=== PATIENT | male | born 1940 | race Two or more races ===

== ENCOUNTER 2025-05-08 19:07 | Inpatient (IN) | payer MEDICARE, OTHER ==
[~2025-05-08] VITALS: Ht 170.2 cm; Wt 57.6 kg
[2025-05-08] MEDS: IV NS 0.9% 500 ML BAG IV ONE (19:44)
[2025-05-08 19:52] LABS: PLATELET COUNT (AUTO) 217 K/uL (150-450); RED BLOOD CELL COUNT(AUTO) 3.74 MIL/uL (4.5-6.0); RED CELL DISTRIBUTION WIDTH 15.0 % (11.5-15.0); WHITE BLOOD COUNT (AUTO) 6.6 K/uL (4.3-11.0)
[2025-05-08 19:59] LABS: CALCIUM, SERUM 8.6 mg/dL (8.5-10.1); CREATININE 1.2 mg/dL (0.6-1.3); SODIUM SERUM 142 mmol/L (136-145); UREA NITROGEN, BLOOD 22 mg/dL (7-18)
[2025-05-08 20:05] LABS: ASPARTATE AMINOTRANSFERASE 20 U/L (15-37); TOTAL PROTEIN, SERUM 6.6 g/dL (6.4-8.2)
[2025-05-08 21:21] LABS: APPEARANCE,URINE SLIGHTLY CLOUDY (CLEAR); BLOOD, URINE NEGATIVE Ery/uL (NEGATIVE); LEUKOCYTE ESTERASE ,URINE 2+ (NEGATIVE); NITRITE, URINE NEGATIVE (NEGATIVE); UGLUCOSE NEGATIVE (NEGATIVE)
[2025-05-08 21:42] LABS: ADD URINE CULTURE YES; SQUAMOUS EPITHELIAL CELL,UR Few /HPF (None Seen)
[2025-05-08] MEDS ORDERED: ACETAMINOPHEN 325 MG TABLET PO PRN (22:00)
[2025-05-08] MEDS ORDERED: MAG HYDROX/AL HYDROX/SIMETH 30 ML UDC PO PRN (22:00)
[2025-05-08] MEDS ORDERED: Z GUARD REMEDY 4 OZ OINT TP PRN (22:00)
[2025-05-08] MEDS ORDERED: ONDANSETRON HCL/PF 4 MG/2 ML VIAL IVP PRN (22:00)
[2025-05-08] MEDS ORDERED: MAGNESIUM HYDROXIDE 30 ML UDC PO PRN (22:00)
[2025-05-08] MEDS ORDERED: BISACODYL SUPP (10 MG) 10 MG/SUPP.RECT SUPP.RECT RC PRN (22:30)
[2025-05-08] MEDS ORDERED: PSEUDOEPHEDRINE HCL 30 MG TABLET PO PRN (22:30)
[2025-05-08] MEDS ORDERED: PHENYLEPHRINE/SHK LV/MO/PET,WH 30 GM TUBE RC PRN (22:30)
[2025-05-08] MEDS ORDERED: LEVOFLOXACIN 250 MG /D5W 50 ML 50 ML IV ONE (23:04)
[2025-05-08] MEDS: IV NS 0.9% 1,000 ML IV PRN (23:14)
[2025-05-08] MEDS: LEVOFLOXACIN 250 MG /D5W 50 ML 250 MG in PREMIX 1 EA IV SCH (23:14)
[2025-05-09] VITALS (7 sets, daily range): BP systolic 105–170; BP diastolic 54–95; TEMP 97.5–98.3; O2SAT 97–99
[2025-05-09 07:29] LABS: PLATELET COUNT (AUTO) 216 K/uL (150-450); RED BLOOD CELL COUNT(AUTO) 3.74 MIL/uL (4.5-6.0); RED CELL DISTRIBUTION WIDTH 14.8 % (11.5-15.0); WHITE BLOOD COUNT (AUTO) 7.4 K/uL (4.3-11.0)
[2025-05-09 07:48] LABS: LDL 50.0 mg/dL (0-99)
[2025-05-09 07:53] LABS: CALCIUM, SERUM 8.4 mg/dL (8.5-10.1); CREATININE 1.1 mg/dL (0.6-1.3); PHOSPHORUS 3.1 mg/dL (2.5-4.9); SODIUM SERUM 140.0 mmol/L (136-145); UREA NITROGEN, BLOOD 18.0 mg/dL (7-18)
[2025-05-09] MEDS: FLUTICASONE PROPIONATE 16 GM BOTTLE NS SCH (09:00)
[2025-05-09] MEDS: ASPIRIN 81 MG TAB.CHEW PO SCH (09:00)
[2025-05-09] MEDS: MULTIVITAMINS,THERAGRAN 1 UDTAB TABLET PO SCH (09:00)
[2025-05-09] MEDS: CARBIDOPA/LEVA CR 25/100MG 1 TAB.SA PO SCH (09:00)
[2025-05-09] MEDS: AMLODIPINE BESYLATE 10 MG TABLET PO SCH (09:00)
[2025-05-09] MEDS ORDERED: ACET325T53 PO (09:54)
[2025-05-09] MEDS ORDERED: ATOR40TA PO (09:54)
[2025-05-09] MEDS ORDERED: POLY17PO4 PO (09:54)
[2025-05-09] MEDS ORDERED: MULT-213 PO (09:54)
[2025-05-09] MEDS ORDERED: CHOL500052 PO (09:54)
[2025-05-09] MEDS ORDERED: CARB1TAB21 PO (09:54)
[2025-05-09] MEDS ORDERED: BISA10SU11 RC (09:54)
[2025-05-09] MEDS ORDERED: ASPI-1169 PO (09:54)
[2025-05-09] MEDS ORDERED: PSEU-298 PO (09:54)
[2025-05-09] MEDS ORDERED: MELA3TAB41 PO (09:54)
[2025-05-09] MEDS ORDERED: PHEN51GE9 TP (09:54)
[2025-05-09] MEDS ORDERED: CALC500T53 PO (09:54)
[2025-05-09] MEDS ORDERED: MAGN400O6 PO (09:54)
[2025-05-09] MEDS ORDERED: AMLO-213 PO (09:54)
[2025-05-09] MEDS ORDERED: FLUT16SP16 BNOSTRILS (09:54)
[2025-05-09] MEDS ORDERED: NA P133E RC (09:54)
[2025-05-09] MEDS: ATORVASTATIN 40 MG TABLET PO SCH (21:33)
[2025-05-10] VITALS: BP 103/68; TEMP 98.2; O2SAT 99
[2025-05-10 04:00] VITALS: BP 155/70; TEMP 98.4; O2SAT 98
[2025-05-10 06:49] LABS: PLATELET COUNT (AUTO) 186 K/uL (150-450); RED BLOOD CELL COUNT(AUTO) 3.34 MIL/uL (4.5-6.0); RED CELL DISTRIBUTION WIDTH 14.6 % (11.5-15.0); WHITE BLOOD COUNT (AUTO) 6.0 K/uL (4.3-11.0)
[2025-05-10 07:10] LABS: CALCIUM, SERUM 8.3 mg/dL (8.5-10.1); CREATININE 1.0 mg/dL (0.6-1.3); SODIUM SERUM 138.0 mmol/L (136-145); UREA NITROGEN, BLOOD 17.0 mg/dL (7-18)
[2025-05-10 07:14] LABS: PHOSPHORUS 3.1 mg/dL (2.5-4.9)
[2025-05-10 08:00] VITALS: BP 157/75; TEMP 97.5; O2SAT 98
[2025-05-10 11:30] VITALS: BP 110/56; TEMP 97; O2SAT 98
[2025-05-10] MEDS ORDERED: ACETAMINOPHEN 325 MG TABLET PO PRN (14:30)
[2025-05-10] MEDS ORDERED: PSEUDOEPHEDRINE HCL 30 MG TABLET PO PRN (14:30)
[2025-05-10] MEDS ORDERED: PHENYLEPHRINE TP PRN (14:30)
[2025-05-10] MEDS ORDERED: BISACODYL SUPP (10 MG) 10 MG/SUPP.RECT SUPP.RECT RC PRN (14:30)
[2025-05-10] MEDS ORDERED: [UNRECOGNIZED DRUG - OTHER] TP PRN (14:30)
[2025-05-10] MEDS ORDERED: POLYETHYLENE GLYCOL 3350 17 GM POWD.PACK PO PRN (14:30)
[2025-05-10] MEDS ORDERED: WITCH HAZEL TP PRN (14:30)
[2025-05-10] MEDS ORDERED: ERGOCALCIFEROL (VITAMIN D 2) 50,000 UNIT CAPSULE PO SCH (14:30)
[2025-05-10] MEDS ORDERED: NA PHOS,M-B/NA PHOS,DI-BA 1 EA ENEMA RC PRN (14:30)
[2025-05-10] MEDS ORDERED: MAGNESIUM HYDROXIDE 30 ML UDC PO PRN (14:30)
[2025-05-10 16:00] VITALS: BP 113/71; TEMP 97.3; O2SAT 99
[2025-05-10] MEDS: CARBIDOPA/LEVODOPA 25/100 MG 1 UDTAB PO SCH (16:47)
[2025-05-10 20:00] VITALS: BP_SYST 150; BP_SYST 155; BP_DIAS 56; BP_DIAS 60; TEMP 97.5; O2SAT 95
[2025-05-10] MEDS: ATORVASTATIN 40 MG TABLET PO SCH (21:05)
[2025-05-11] VITALS: BP 155/70; TEMP 97.9; O2SAT 100
[2025-05-11 04:00] VITALS: BP 144/50; TEMP 97.5; O2SAT 99
[2025-05-11 06:19] LABS: PLATELET COUNT (AUTO) 189 K/uL (150-450); RED BLOOD CELL COUNT(AUTO) 3.60 MIL/uL (4.5-6.0); RED CELL DISTRIBUTION WIDTH 14.4 % (11.5-15.0); WHITE BLOOD COUNT (AUTO) 5.9 K/uL (4.3-11.0)
[2025-05-11 06:28] LABS: CALCIUM, SERUM 8.2 mg/dL (8.5-10.1); CREATININE 1.0 mg/dL (0.6-1.3); SODIUM SERUM 139.0 mmol/L (136-145); UREA NITROGEN, BLOOD 15.0 mg/dL (7-18)
[2025-05-11 06:43] LABS: PHOSPHORUS 3.5 mg/dL (2.5-4.9)
[2025-05-11 08:00] VITALS: BP 163/82; TEMP 98.1; O2SAT 97
[2025-05-11] MEDS ORDERED: Medication Not On Formulary EA (Multivitamins W-Minerals (Multivitamins With Minerals) 1 PO SCH (09:00)
[2025-05-11] MEDS ORDERED: FLUTICASONE PROPIONATE 16 GM BOTTLE NS SCH (09:00)
[2025-05-11] MEDS: AMLODIPINE BESYLATE 10 MG TABLET PO SCH (09:30)
[2025-05-11] MEDS: ASPIRIN 81 MG TAB.CHEW PO SCH (09:31)
[2025-05-11] MEDS: CALCIUM CARBONATE (1250) 500 MG TABLET PO SCH (09:31)
[2025-05-11 11:30] VITALS: BP 108/61; TEMP 98.2; O2SAT 98
[2025-05-11] MEDS ORDERED: LEVO250T59 PO (15:57)
[2025-05-11 16:00] VITALS: BP 159/67; TEMP 98.8; O2SAT 99
[2025-05-11 19:51] VITALS: BP 176/75
[2025-05-11] MEDS: hydrALAZINE HCL IV 20 MG VIAL IV PRN (19:51)
[2025-05-11] MEDS ORDERED: LEVOFLOXACIN (250MG) 250 MG TABLET PO SCH (22:00)
== END 2025-05-11 20:30 | DRG 74 ==
LOC: ER 19:09 → TELE 21:49
PROVIDERS: ADMIT Registered Nurse Psychiatric/Mental Health; ATTEND Student in an Organized Health Care Education/Training Program
DX: G90.89 Other disorders of autonomic nervous system (principal); N39.0 Urinary tract infection, site not specified; I50.32 Chronic diastolic (congestive) heart failure; E86.0 Dehydration; Z66 Do not resuscitate; Z51.5 Encounter for palliative care; G20.A1 Parkinson's disease without dyskinesia, without mention of fluctuations; I25.10 Atherosclerotic heart disease of native coronary artery without angina pectoris; G47.33 Obstructive sleep apnea (adult) (pediatric); Z88.0 Allergy status to penicillin; Z91.0110 Allergy to milk products, unspecified; D64.9 Anemia, unspecified; R73.9 Hyperglycemia, unspecified; M81.0 Age-related osteoporosis without current pathological fracture; G62.9 Polyneuropathy, unspecified; F41.9 Anxiety disorder, unspecified; F32.A Depression, unspecified; E78.5 Hyperlipidemia, unspecified; B96.20 Unspecified Escherichia coli [E. coli] as the cause of diseases classified elsewhere; Z79.82 Long term (current) use of aspirin; Z79.51 Long term (current) use of inhaled steroids; Z79.899 Other long term (current) drug therapy; G31.84 Mild cognitive impairment of uncertain or unknown etiology; F43.10 Post-traumatic stress disorder, unspecified; X58.XXXA Exposure to other specified factors, initial encounter; Y92.9 Unspecified place or not applicable; I11.0 Hypertensive heart disease with heart failure
CPT/HCPCS: 36415; 70450-TC; 71045-TC; 80048-TC; 80061-TC; 80076-TC; 81001; 83735-TC; 84100-TC; 85025-TC; 87081-TC; 87086-TC; 87186-TC; 92526; 92611; 93307-TC; A4216; A4223; G0378; J0360; J1956; J7030; J7040